=== PATIENT | female | born 1970 | race Caucasian/White ===

== ENCOUNTER 2017-08-23 20:58 | Observation (INO) | payer OTHER ==
[~2017-08-23] VITALS: Ht 170.2 cm; Wt 88.5 kg
[~2017-08-23 20:58] MED LIST: ABILIFY10 MG PO; BACTRIM DS1 TAB PO; CEPHALEXIN500 MG PO; CIPROFLOXACN500 MG PO; HALDOL5 MG PO; INDOCIN50 MG/CAP PO; LEXAPRO10 MG PO; ONDANSETRON4 MG PO; PROAIR HFA IN; PYRIDIUM200 MG PO; TYLENOL # 31 TA1 PO; ULTRAM50 M1 PO
[2017-08-23 21:39] LABS: URINE BILIRUBIN - DIPSTICK NEGATIVE (NEGATIVE); URINE BLOOD DIPSTICK LARGE (NEGATIVE); URINE CLARITY SL CLOUDY; URINE COLOR YELLOW; URINE GLUCOSE - DIPSTICK NEGATIVE (NEGATIVE); URINE KETONE NEGATIVE (NEGATIVE); URINE LEUK ESTERASE MODERATE (NEGATIVE); URINE NITRITE - DIPSTICK POSITIVE (Negative); URINE PROTEIN - DIPSTICK 100 mg/dL (NEG-TRACE); URINE SPECIFIC GRAVITY >=1.030; URINE UROBILINOGEN - DIPSTICK 0.2 E.U./dL (0.2)
[2017-08-23 21:40] LABS: URINE SQUAMOUS EPITHELIAL CELL FEW EPI/hpf (0-FEW); URINE WBC 20-50 WBC/hpf (0-5)
[2017-08-23 21:44] LABS: HEMATOCRIT 35.6 % (37.0-47.0); HEMOGLOBIN 11.3 g/dl (12.0-16.0); IMMATURE GRANULOCYTES 0.6 % (0.0-1.0); MEAN CORPUSCULAR HGB 24.8 pG CALC (26.0-32.0); MEAN CORPUSCULAR HGB CONC 31.7 g/L CALC (32.0-36.0); NEUT# 15.8 thou/uL (2.00-7.15); RED BLOOD COUNT 4.55 mill/uL (4.20-5.60); RED CELL DISTRI WIDTH 16.2 % (11.5-15.5)
[2017-08-23 21:46] LABS: MEAN CELL VOLUME 78.2 fL CALC (80.0-100.0)
[2017-08-23 22:15] LABS: ALBUMIN 3.4 g/dL (3.2-5.0); ALKALINE PHOSPHATASE 82 u/l (38-126); AMYLASE 62 u/l (30-110); ANION GAP 13 (6-22 (CALC)); BILIRUBIN, TOTAL 0.5 mg/dL (0.0-1.4); BUN 10 mg/dL (7-17); BUN/CREATININE RATIO 14 (12-20 (CALC)); CARBON DIOXIDE 20 mmol/l (22-30); CHLORIDE 109 mmol/l (95-108); CREATININE 0.7 mg/dL (0.5-1.0); GFR > 60 ML/MIN (>=60 (CALC)); GFR FOR AFR.AMER. > 60 ML/MIN (>=60 (CALC)); LIPASE 36 u/l (23-300); POTASSIUM 3.7 mmol/l (3.5-5.1); SGOT/AST 17 u/l (14-36); SGPT/ALT 33 u/l (9-52); SODIUM 138 mmol/l (137-146); TOTAL PROTEIN 6.8 g/dL (6.3-8.2)
[2017-08-24 00:20] VITALS: BP 141/75
[2017-08-24 04:02] VITALS: BP 126/71
[2017-08-24 07:21] LABS: HEMATOCRIT 30.4 % (37.0-47.0); HEMOGLOBIN 9.5 g/dl (12.0-16.0); MEAN CELL VOLUME 79.2 fL CALC (80.0-100.0); MEAN CORPUSCULAR HGB 24.7 pG CALC (26.0-32.0); MEAN CORPUSCULAR HGB CONC 31.3 g/L CALC (32.0-36.0); RED BLOOD COUNT 3.84 mill/uL (4.20-5.60); RED CELL DISTRI WIDTH 16.3 % (11.5-15.5)
[2017-08-24 07:44] VITALS: BP 107/66
[2017-08-24 17:40] VITALS: BP 122/77
[2017-08-24 19:25] VITALS: BP 111/70
[2017-08-25 04:58] VITALS: BP 112/61
[2017-08-25 05:09] LABS: HEMATOCRIT 33.2 % (37.0-47.0); HEMOGLOBIN 10.2 g/dl (12.0-16.0); IMMATURE GRANULOCYTES 0.6 % (0.0-1.0); MEAN CELL VOLUME 78.3 fL CALC (80.0-100.0); MEAN CORPUSCULAR HGB 24.1 pG CALC (26.0-32.0); MEAN CORPUSCULAR HGB CONC 30.7 g/L CALC (32.0-36.0); NEUT# 5.64 thou/uL (2.00-7.15); RED BLOOD COUNT 4.24 mill/uL (4.20-5.60); RED CELL DISTRI WIDTH 16.2 % (11.5-15.5)
[2017-08-25 05:18] LABS: ANION GAP 13 (6-22 (CALC)); BUN 9 mg/dL (7-17); BUN/CREATININE RATIO 14 (12-20 (CALC)); CARBON DIOXIDE 20 mmol/l (22-30); CHLORIDE 110 mmol/l (95-108); CREATININE 0.7 mg/dL (0.5-1.0); GFR > 60 ML/MIN (>=60 (CALC)); GFR FOR AFR.AMER. > 60 ML/MIN (>=60 (CALC)); MAGNESIUM 2.1 mg/dL (1.6-2.3); POTASSIUM 4.3 mmol/l (3.5-5.1); SODIUM 138 mmol/l (137-146)
[2017-08-25 07:17] VITALS: BP 114/67
[2017-08-25 15:29] VITALS: BP 115/66
[2017-08-25] MEDS ORDERED: CIPRO XR500 M2 PO (16:28)
[2017-08-25] MEDS ORDERED: IBUPROFEN600 MG PO (16:30)
[2017-08-25] MEDS ORDERED: TRAMADOL HYDROC50 MG PO (16:31)
== END 2017-08-25 16:55 | disposition home or self-care (01) | DRG 690 ==
LOC: ED 20:58 → ED-I 23:48 → ED 08-24 00:06 → MS2 08-24 00:07
PROVIDERS: Emergency Medicine; Internal Medicine; Nurse Practitioner Family; ADMIT Internal Medicine; ATTEND Internal Medicine
DX: N12 Tubulo-interstitial nephritis, not specified as acute or chronic (principal); K52.9 Noninfective gastroenteritis and colitis, unspecified; E27.8 Other specified disorders of adrenal gland; D50.9 Iron deficiency anemia, unspecified; E86.0 Dehydration; J45.909 Unspecified asthma, uncomplicated; F31.9 Bipolar disorder, unspecified; B96.20 Unspecified Escherichia coli [E. coli] as the cause of diseases classified elsewhere
CPT/HCPCS: G0378; Q9967

== ENCOUNTER 2017-08-26 13:15 | Observation (INO) | payer OTHER ==
[~2017-08-26] VITALS: Ht 170.2 cm; Wt 85.5 kg
[~2017-08-26 13:15] MED LIST changes: +CIPRO XR500 M2 PO; +IBUPROFEN600 MG PO; +TRAMADOL HYDROC50 MG PO
[2017-08-26 13:49] VITALS: BP 121/81
[2017-08-26 15:30] VITALS: BP 111/72
[2017-08-26 19:00] VITALS: BP 119/75
[2017-08-27 04:59] VITALS: BP 111/62
[2017-08-27 06:18] LABS: HEMOGLOBIN 10.1 g/dl (12.0-16.0); IMMATURE GRANULOCYTES 0.6 % (0.0-1.0); MEAN CELL VOLUME 77.5 fL CALC (80.0-100.0); MEAN CORPUSCULAR HGB 24.5 pG CALC (26.0-32.0); MEAN CORPUSCULAR HGB CONC 31.6 g/L CALC (32.0-36.0); NEUT# 7.05 thou/uL (2.00-7.15); RED BLOOD COUNT 4.13 mill/uL (4.20-5.60); RED CELL DISTRI WIDTH 16.3 % (11.5-15.5)
[2017-08-27 06:30] LABS: ANION GAP 12 (6-22 (CALC)); BUN 14 mg/dL (7-17); BUN/CREATININE RATIO 22 (12-20 (CALC)); CARBON DIOXIDE 22 mmol/l (22-30); CHLORIDE 108 mmol/l (95-108); CREATININE 0.6 mg/dL (0.5-1.0); GFR > 60 ML/MIN (>=60 (CALC)); GFR FOR AFR.AMER. > 60 ML/MIN (>=60 (CALC)); SODIUM 137 mmol/l (137-146)
[2017-08-27 09:20] VITALS: BP 112/69
[2017-08-27] MEDS ORDERED: METRONIDAZOL500 MG PO (11:18)
[2017-08-27 17:15] VITALS: BP 126/86
[2017-08-27 19:00] VITALS: BP 123/83
[2017-08-27 23:52] VITALS: BP 118/76
[2017-08-28 04:00] VITALS: BP 130/76
[2017-08-28 07:17] VITALS: BP 126/79
[2017-08-28 12:02] LABS: ACT PARTIAL THROMBO TIME 24.7 SECONDS (20.0-32.5); INTERNATIONAL NORMALIZED RATIO 0.9 RATIO (0.7-1.3); PROTHROMBIN TIME 10.5 SECONDS (9.0-12.5)
[2017-08-28 15:25] VITALS: BP 115/77
[2017-08-28 19:42] VITALS: BP 130/85
[2017-08-29 03:55] VITALS: BP 130/76
[2017-08-29 07:40] VITALS: BP 123/62
[2017-08-29] MEDS ORDERED: CIPROFLOXACN500 MG PO (11:05)
== END 2017-08-29 13:15 | disposition home or self-care (01) | DRG 392 ==
LOC: MS2 13:15
PROVIDERS: Nurse Practitioner Family; ADMIT Internal Medicine; ATTEND Internal Medicine
PROC: 3E0234Z Introduction of Serum, Toxoid and Vaccine into Muscle, Percutaneous Approach (ICD-10-PCS; principal; 2017-08-28)
DX: R10.31 Right lower quadrant pain (principal); N12 Tubulo-interstitial nephritis, not specified as acute or chronic; R10.32 Left lower quadrant pain; E86.0 Dehydration; K52.9 Noninfective gastroenteritis and colitis, unspecified; J45.909 Unspecified asthma, uncomplicated; E27.8 Other specified disorders of adrenal gland; K59.00 Constipation, unspecified; F31.9 Bipolar disorder, unspecified; B96.20 Unspecified Escherichia coli [E. coli] as the cause of diseases classified elsewhere; Z23 Encounter for immunization
CPT/HCPCS: G0378; G0379; Q9967

== ENCOUNTER 2017-09-14 05:39 | Day surgery (SDC) | payer OTHER ==
[~2017-09-14 05:39] MED LIST changes: +METRONIDAZOL500 MG PO
[2017-09-14 09:45] VITALS: BP 139/74
[2017-09-14] MEDS ORDERED: MOTRIN800 MG PO (09:50)
[2017-09-14] MEDS ORDERED: PERCOCET 5/325M1 TAB PO (09:50)
== END 2017-09-14 10:15 | disposition home or self-care (01) ==
LOC: ORM 05:39
PROVIDERS: ATTEND Surgery
DX: K43.2 Incisional hernia without obstruction or gangrene (principal)
CPT/HCPCS: J2710

== ENCOUNTER → 2023-10-21 | Emergency (ER) | payer OTHER ==
[2023-10-21] VITALS (18 sets, daily range): BP systolic 114–158; BP diastolic 65–87
[~2023-10-21] VITALS: Ht 170.2 cm; Wt 88.0 kg
[~2023-10-21] MED LIST changes: +CEPHALEXIN500 M1 PO; +FAMOTIDINE 10MG/ML 2ML SDV IV ONE; +MOTRIN800 MG PO; +ONDANSETRON HCl 4 MG/2 ML SDV IV ONE; +PEPCID20 MG PO; +PERCOCET 5/325M1 TAB PO; +PROTONIX40 M2 PO; +SODIUM CHLORIDE 0.9% 1,000 ML IV ONE; +ZOFRAN4 MG/TAB PO
[2023-10-21 12:32] LABS: BASO% 0.3 % (0-3); EOS% 1.8 % (0-8); HEMOGLOBIN 9.6 g/dl (12.0-16.0); IMMATURE GRANULOCYTES 0.2 % (0.0-5.0); LYMPH% 14.2 % (15-41); MEAN CELL VOLUME 78.7 fL CALC (80.0-100.0); MEAN CORPUSCULAR HGB 24.4 pG CALC (26.0-32.0); MONO% 4.3 % (2-13); NEUT# 8.57 thou/uL (2.00-7.15); NEUT% 79.2 % (42-76); RED BLOOD COUNT 3.94 mill/uL (4.20-5.60); RED CELL DISTRI WIDTH 17.9 % (11.5-15.5)
[2023-10-21 12:42] LABS: HCG SERUM/URINE (NEG/POS) NEGATIVE (NEGATIVE)
[2023-10-21 12:46] LABS: ALBUMIN 4.3 g/dL (3.2-5.0); BILIRUBIN, TOTAL 0.8 mg/dL (0.02-1.3); CREATININE 0.7 mg/dL (0.5-1.0); POTASSIUM 3.7 mmol/l (3.5-5.1); TOTAL PROTEIN 8.2 g/dL (6.3-8.2)
[2023-10-21 15:46] LABS: URINE BLOOD DIPSTICK Negative (NEGATIVE); URINE GLUCOSE - DIPSTICK Negative (NEGATIVE); URINE KETONE Negative (NEGATIVE); URINE LEUK ESTERASE Trace (NEGATIVE); URINE NITRITE - DIPSTICK Negative (Negative); URINE PH 8.5 (4.5-8.0); URINE PROTEIN - DIPSTICK 30 mg/dL (NEG-TRACE)
[2023-10-21 15:47] LABS: URINE COLOR Yellow
[2023-10-21 15:48] LABS: URINE RBC 0-2 RBC/hpf (0-5); URINE SQUAMOUS EPITHELIAL CELL FEW EPI/hpf (0-FEW); URINE WBC 0-2 WBC/hpf (0-5)
== END | disposition home or self-care (01) | DRG 392 ==
LOC: ED 11:49
PROVIDERS: Family Medicine
DX: K29.70 Gastritis, unspecified, without bleeding (principal); Z20.822 Contact with and (suspected) exposure to COVID-19
CPT/HCPCS: J2470; Q9967